=== PATIENT | female | born 1945 | race Caucasian/White ===

== ENCOUNTER 2017-09-27 22:23 | Emergency (ER) | payer MEDICARE ==
[2017-09-27] MEDS ORDERED: Ondansetron 4 MG/2 ML SDV IVPUSH ONE (22:46)
[2017-09-27] MEDS ORDERED: Sodium Chloride 0.9% 10 ML Syringe FLUSH PRN (22:46)
[2017-09-27] MEDS ORDERED: Sodium Chloride 0.9% 1,000 ML IV SCH (23:00)
--- NOTE | 2017-09-28 00:02 | EDM.PDOC ---
ED HPI GENERAL MEDICAL PROBLEM - General Chief Complaint: Gastrointestinal Problem Stated Complaint: DIZZY SPELLS/VOMITING Time Seen by Provider: 09/27/17 22:40 Source of Information: Reports: Patient History Limitations: Reports: No Limitations - History of Present Illness INITIAL COMMENTS - FREE TEXT/NARRATIVE: The patient presents with nausea, vomiting and dizziness. This started this morning. It got worse this evening. She said when she opens her eyes it is like the room is spinning. She has never had anything like this before. She has no headache, fever, chills, ear pain, ringing in the ears, chest pain, shortness of breath or abdominal pain. She did notice some decreased hearing from the left ear. She has no history of stroke or [place]. She was supposed to get a stent but it was to far to stent it according to the patient. Onset: Gradual Duration: Hour(s): Severity: Moderate Improves with: Reports: Immobilization Worsens with: Reports: Movement Associated Symptoms: Reports: Nausea/Vomiting. 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 Denies: Abdominal Pain : Reports: No Symptoms Musculoskeletal: Reports: No Symptoms ED EXAM, GI/ABD - Physical Exam Exam: See Below Exam Limited By: No Limitations General Appearance: Alert, No Apparent Distress Eyes: Left: Nystagmus, Bilateral: EOMI Ears: Normal External Exam, Normal Canal, Normal TMs Nose: Normal Inspection Throat/Mouth: Normal Inspection Head: Atraumatic, Normocephalic Neck: Normal Inspection Respiratory/Chest: No Respiratory Distress, Lungs Clear, Normal Breath Sounds Cardiovascular: Regular Rate, Rhythm, No Edema, No Murmur GI/Abdominal Exam: Soft, Non-Tender, No Organomegaly, No Mass EKG INTERPRETATION EKG Date: 09/28/17 Time: 22:59 Rhythm: Other (sinus bradycardia) Rate (Beats/Min): 57 [place]: Normal P-Wave: Present QRS: Normal ST-T: Normal QT: Normal Course - Vital Signs Last Recorded V/S: Last Vital Signs Temp 97.4 F 09/27/17 22:31 Pulse 86 09/27/17 22:31 Resp 16 09/27/17 22:31 BP Pulse Ox 99 09/27/17 22:31 - Orders/Labs/Meds Orders: Active Orders 24 hr Category Date Time Status Cardiac Monitoring [RC] . DIRECTED Care 09/27/17 22:46 Active EKG Documentation Completion [RC] STAT Care 09/27/17 22:47 Active Peripheral IV Care [RC] . DIRECTED Care 09/27/17 22:47 Active Head wo Cont [CT] Stat Exams 09/27/17 22:48 Taken Sodium Chloride 0.9% [Normal Saline] 1,000 ml Med 09/27/17 23:00 Active IV ASDIRECTED Sodium Chloride 0.9% [Saline Flush] Med 09/27/17 22:46 Active 10 ml FLUSH ASDIRECTED PRN ED Antiemetic Medication Reflex [OM.PC] Stat Oth 09/27/17 22:47 Ordered Peripheral IV Insertion Adult [OM.PC] Stat Oth 09/27/17 22:46 Ordered Medication Orders Sodium Chloride (Normal Saline) 1,000 mls @ 125 mls/hr IV ASDIRECTED ABHISHEK Last Admin: 09/27/17 22:54 Dose: 125 mls/hr Sodium Chloride (Saline Flush) 10 ml FLUSH ASDIRECTED PRN PRN Reason: Keep Vein Open Last Admin: 09/27/17 22:54 Dose: 10 ml Labs: Laboratory Tests 09/27/17 09/27/17 Range/Units 22:45 22:45 WBC 9.75 (3.98-10.04) K/mm3 RBC 4.98 (3.98-5.22) M/mm3 Hgb 14.2 (11.2-15.7) gm/L Hct 43.1 (34.1-44.9) % MCV 86.5 (79.4-94.8) fl MCH 28.5 (25.6-32.2) pg MCHC 32.9 (32.2-35.5) g/dl RDW Std Deviation 46.5 H (36.4-46.3) fL Plt Count 284 (182-369) K/mm3 MPV 11.9 (9.4-12.3) fl Neut % (Auto) 78.3 H (34.0-71.1) % Lymph % (Auto) 15.4 L (19.3-51.7) % Davis % (Auto) 5.7 (4.7-12.5) % Eos % (Auto) 0.1 L (0.7-5.8) Baso % (Auto) 0.3 (0.1-1.2) % Neut # (Auto) 7.63 H (1.56-6.13) K/mm3 Lymph # (Auto) 1.50 (1.18-3.74) K/mm3 Davis # (Auto) 0.56 H (0.24-0.36) K/mm3 Eos # (Auto) 0.01 L (0.04-0.36) K/mm3 Baso # (Auto) 0.03 (0.01-0.08) K/mm3 Sodium 141 (136-145) mEq/L Potassium 3.7 (3.5-5.1) mEq/L Chloride 105 (98-107) mEq/L Carbon Dioxide 23 (21-32) mEq/L Anion Gap 16.7 H (5-15) BUN 17 (7-18) mg/dL Creatinine 1.0 (0.55-1.02) mg/dL Est Cr Clr Drug Dosing 41.40 mL/min Estimated GFR (MDRD) 55 (>60) mL/min BUN/Creatinine Ratio 17.0 (14-18) Glucose 133 H (80-115) mg/dL Calcium 9.7 (8.5-10.1) mg/dL Total Bilirubin 0.9 (0.2-1.0) mg/dL AST 47 H (15-37) U/L ALT 136 H (14-59) U/L Alkaline Phosphatase 232 H (46-116) U/L Troponin I < 0.017 (0.00-0.056) ng/mL Total Protein 7.8 (6.4-8.2) g/dl Albumin 3.5 (3.4-5.0) g/dl Globulin 4.3 gm/dL Albumin/Globulin Ratio 0.8 L (1-2) Meds: Medications Generic Name Dose Route Start Last Admin Trade Name Freq PRN Reason Stop Dose Admin Sodium Chloride 1,000 mls @ 125 mls/hr 09/27/17 23:00 09/27/17 22:54 Normal Saline IV 125 mls/hr ASDIRECTED ABHISHEK Administration Sodium Chloride 10 ml 09/27/17 22:46 09/27/17 22:54 Saline Flush FLUSH 10 ml ASDIRECTED PRN Administration Keep Vein Open Discontinued Medications Generic Name Dose Route Start Last Admin Trade Name Freq PRN Reason Stop Dose Admin Meclizine HCl 25 mg 09/27/17 23:22 09/27/17 23:30 Antivert PO 09/27/17 23:23 25 mg ONETIME ONE Administration Ondansetron HCl 4 mg 09/27/17 22:46 09/27/17 22:54 Zofran IVPUSH 09/27/17 22:47 4 mg ONETIME ONE Administration - Re-Assessments/Exams Free Text/Narrative Re-Assessment/Exam: 09/28/17 00:01 I ordered an IV NS at 125mL/hr, zofran 4mg IV, antivert 25mg PO, EKG, CT of her head and labs. Her EKG shows a sinus bradycardia with no acute changes. Her CBC looks good. Her liver enzymes are slightly elevated. Her troponin is negative. Her CT shows no acute intracranial findings. Left-sided mastoid effusion. Correlate with any clinical to suggest mastoiditis. 09/28/17 00:07 The patient has no mastoid tenderness and she has no ear pain. Her left ear looks good. She does have some mild hearing loss and she has some water like feeling in that left ear. This could possibly be a mild case of mastoiditis. I will give her some amoxicillin, zofran and antivert. Departure - Departure Time of Disposition: 00:10 Disposition: Home, Self-Care 01 Condition: Good Clinical Impression: Vertigo, Mastoiditis of left side - Discharge Information Prescriptions: Amoxicillin 1,000 mg PO BID #40 tab Meclizine [Antivert] 25 mg PO Q6H PRN #30 tablet PRN Reason: Dizziness Ondansetron [Zofran ODT] 4 mg PO Q6H PRN #20 tab.dis PRN Reason: Nausea/Vomiting Referrals: Malka Damon PA-C [Primary Care Provider] - Phil Mckeon MD [Ordering Only Provider] - Forms: ED Department Discharge Additional Instructions: Take the amoxicillin 1,000mg 2 times per day for 10 days. Take the antivert 25mg every 6 hours as needed for dizziness. Take zofran 4mg every 6 hours as needed for nausea and vomiting. Follow up with Dr Del Toro our regulatory compliance manager at our clinic. Call [phone]. You may also follow up with Dr Mckeon an ear nose and throat doctor in [place]. Please return if you are worse. - My Orders Last 24 Hours: My Active Orders 09/27/17 22:46 Cardiac Monitoring [RC] . DIRECTED Sodium Chloride 0.9% [Saline Flush] 10 ml FLUSH ASDIRECTED PRN Peripheral IV Insertion Adult [OM.PC] Stat 09/27/17 22:47 EKG Documentation Completion [RC] STAT Peripheral IV Care [RC] . DIRECTED ED Antiemetic Medication Reflex [OM.PC] Stat 09/27/17 22:48 Head wo Cont [CT] Stat 09/27/17 23:00 Sodium Chloride 0.9% [Normal Saline] 1,000 ml IV ASDIRECTED - Assessment/Plan Last 24 Hours: My Active Orders 09/27/17 22:46 Cardiac Monitoring [RC] . DIRECTED Sodium Chloride 0.9% [Saline Flush] 10 ml FLUSH ASDIRECTED PRN Peripheral IV Insertion Adult [OM.PC] Stat 09/27/17 22:47 EKG Documentation Completion [RC] STAT Peripheral IV Care [RC] . DIRECTED ED Antiemetic Medication Reflex [OM.PC] Stat 09/27/17 22:48 Head wo Cont [CT] Stat 09/27/17 23:00 Sodium Chloride 0.9% [Normal Saline] 1,000 ml IV ASDIRECTED
[2017-09-28] MEDS ORDERED: Amoxicillin 500 MG Cap PO ONE (00:11)
--- NOTE | 2017-09-28 06:59 | CT ---
Head CT Technique: Multiple axial sections through the brain were obtained. Intravenous contrast was not utilized. Comparison: No previous intracranial imaging. Findings: Ventricles along with basal cisterns and sulci over the convexities are within normal limits for the patient's age. No abnormal parenchymal densities are seen. No evidence of intracranial hemorrhage. No midline shift or mass effect is seen. Soft tissue density seen within the left mastoid sinus with possible small amount of fluid. Mucosal thickening also noted within a portion of the middle ear cavity. No acute calvarial abnormality is seen. Impression: 1. Mastoid findings and middle ear findings as noted above (left side). Findings are suspicious for otitis media +/- mastoiditis. 2. No acute intracranial abnormality is identified. Diagnostic code #3 Agree with preliminary report issued by [facility] ([facility] preliminary report dictated on 09/28/17, 12:25 AM Central Time)
== END 2017-09-28 00:30 | disposition home or self-care (01) ==
LOC: JD.ED 22:23
DX: R42 Dizziness and giddiness (principal); H70.92 Unspecified mastoiditis, left ear; I10 Essential (primary) hypertension; I25.10 Atherosclerotic heart disease of native coronary artery without angina pectoris
CPT/HCPCS: 36415; 70450; 80053; 84484; 85025; 96361; 96374; 99284; A9270; J2405; J7040; J7050; 93010